=== PATIENT | male | born 1975 | race Hispanic/Latino ===

== ENCOUNTER 2017-05-05 19:37 | Inpatient (IN) | payer MEDICAID ==
[2017-05-05 19:37] VITALS: BMI 23.7
--- NOTE | 2017-05-05 20:47 | C.PDOC ---
History Of Present Illness 41 y/o male presents to ED requesting alcohol and heroin detox. Pt also reports feeling depressed. Denies SI, HI or any physical complaints. Time Seen by Provider: 05/05/17 19:58 Chief Complaint (Nursing): Substance Abuse History Per: Patient History/Exam Limitations: no limitations Current Symptoms Are (Timing): Still Present Modifying Factor(s): Alcohol, Narcotics Associated Symptoms: Depression. denies: Suicidal Thoughts Involuntary Hold By: None Recent travel outside of the [place]: No Past Medical History Reviewed: Historical Data, Nursing Documentation, Vital Signs Vital Signs: Last Vital Signs Temp 98 F 05/06/17 00:02 Pulse 63 05/06/17 00:02 Resp 20 05/06/17 00:02 BP 112/70 05/06/17 00:02 Pulse Ox 100 05/06/17 00:02 - Medical History PMH: Bipolar Disorder, Depression - [facility] Procedures CLOSURE SKIN & SUBCUTANEOUS NEC (08/02/05) DETOXIFICATION SERVICES FOR SUBSTANCE ABUSE TREATMENT (05/30/16) GROUP DRYWALL PROFESSIONAL FOR SUBSTANCE ABUSE TREATMENT, PSYCHOEDUCATION (05/30/16) INDIV PSYCHOTHERAPY FOR SUBSTANCE ABUSE TREATMENT, SUPPORT (11/20/15) INJECT/INFUSE NEC (12/18/12) MEDICATION MANAGEMENT (11/20/15) MEDS MGMT FOR SUBSTANCE ABUSE TREATMENT, OTH REPL MED (02/08/16) VENOUS PUNCTURE NEC (08/31/13) Family History: States: Unknown Family Hx - Social History Hx Tobacco Use: Yes Hx Alcohol Use: Yes (beer/liquor) Hx Substance Use: Yes - Immunization History Hx Tetanus Toxoid Vaccination: Yes Hx Influenza Vaccination: No Hx Pneumococcal Vaccination: No Review Of Systems Except As Marked, All Systems Reviewed And Found Negative. Constitutional: Negative for: Fever Cardiovascular: Negative for: Chest Pain Respiratory: Negative for: Shortness of Breath Gastrointestinal: Negative for: Abdominal Pain Psych: Positive for: Depression. Negative for: Suicidal ideation Physical Exam - Physical Exam Appears: Non-toxic, No Acute Distress Skin: Warm, Dry, No Rash Head: Atraumatic, Normacephalic Neck: Normal, Normal ROM, No Supple Chest: Symmetrical Cardiovascular: Rhythm Regular (tachycardia), No Murmur Respiratory: Normal Breath Sounds, No Rales, No Rhonchi, No Wheezing Gastrointestinal/Abdominal: Normal Exam, Soft, No Tenderness Extremity: Bilateral: Atraumatic Neurological/Psych: Oriented x3, Normal Speech, Other (no tremor) ED Course And Treatment - Laboratory Results Result Diagrams: 05/05/17 21:51 05/05/17 21:51 O2 Sat by Pulse Oximetry: 99 (room air) Pulse Ox Interpretation: Normal Progress Note: Pt to be evaluated by CRISIS. Pt is medically cleared for psychiatric evaluation/ admission. KCL PO and librium ordered. Pt was evaluated by crisis counselor Eloina and is ad mitted to Psych by Dr Jaimes Disposition - Disposition Disposition: HOSPITALIZED Disposition Time: 01:05 Condition: STABLE - Clinical Impression Clinical Impression: Opiate dependence, Depression - PA / REGIONAL CLINICAL DIRECTOR / Resident Statement MD/DO has reviewed & agrees with the documentation as recorded. - Scribe Statement The provider has reviewed the documentation as recorded by the Scribe Tyrone Roach All medical record entries made by the Scribe were at my direction and personally dictated by me. I have reviewed the chart and agree that the record accurately reflects my personal performance of the history, physical exam, medical decision making, and the department course for this patient. I have also personally directed, reviewed, and agree with the discharge instructions and disposition.
[2017-05-05 21:58] LABS: BASO # 0.1 K/uL (0.0-0.2); BASO % 0.6 % (0.0-2.0); EOS # 0.2 K/uL (0.0-0.7); EOS % 1.8 % (0.0-4.0); HEMATOCRIT 42.7 % (35.0-51.0); LYMPH # 2.2 K/uL (1.0-4.3); LYMPH % 21.4 % (20.0-40.0); MEAN CELL VOLUME 84.6 fL (80.0-94.0); MEAN CORPUSCULAR HEMOGLOBIN 27.6 pg (27.0-31.0); MEAN CORPUSCULAR HGB CONC 32.6 g/dL (33.0-37.0); MEAN PLATELET VOLUME 7.7 fL (7.2-11.7); MONO # 0.7 K/uL (0.0-0.8); MONO % 6.8 % (0.0-10.0); RED CELL DISTRIBUTION WIDTH 13.5 % (11.5-14.5); WHITE BLOOD COUNT 10.2 K/uL (4.8-10.8)
[2017-05-05 22:03] LABS: CHLORIDE 102 mmol/L (98-107)
[2017-05-05 22:04] LABS: SODIUM 139 mmol/L (132-148)
[2017-05-05 22:06] LABS: ALB/GLOB RATIO 1.1 (1.0-2.1); ALKALINE PHOSPHATASE 77 U/L (38-126); ALT/SGPT 55 U/L (21-72); AST/SGOT 42 U/L (17-59); BILIRUBIN,TOTAL 0.7 mg/dL (0.2-1.3); BLOOD UREA NITROGEN 14 mg/dL (9-20); CARBON DIOXIDE 27 mmol/L (22-30); GFR AFRICAN-AMERICAN > 60; TOTAL PROTEIN 7.2 g/dL (6.3-8.3)
[2017-05-05 22:07] LABS: ALCOHOL SERUM < 10 mg/dl (0-10); CALCIUM 8.8 mg/dl (8.6-10.4); GLUCOSE,RANDOM 84 mg/dL (75-110)
[2017-05-05 22:09] LABS: POTASSIUM 3.1 mmol/L (3.6-5.2)
[2017-05-05] MEDS ORDERED: Potassium Chloride 20 mEq ER Tab PO STA (22:11)
[2017-05-05] MEDS ORDERED: Potassium Chloride 20 mEq ER Tab PO ONE (22:17)
[2017-05-06] MEDS ORDERED: Aluminum Hydroxide/Magnesium Hydroxide Susp (30 mL) PO STA (00:25)
[2017-05-06] MEDS ORDERED: Aluminum Hydroxide/Magnesium Hydroxide Susp (30 mL) ONE (00:27)
[2017-05-07 06:56] VITALS: BP 109/68; PULSE 59; RESP 16; TEMP 97.7; O2SAT 100
--- NOTE | 2017-05-07 23:11 | PCM.PSYCH ---
Initial Psychiatric Evaluation - Initial Psychiatric Evaluation Legal Status: Capacity Chief Complaint (in patient's own words): I AM DEPRESSED Patient's Reaction to Hospitalization: I AM GLAD THAT I CAME History of Present Illness and Precipitating Events: PT IS A41 YEAR OLD SINGLE, DOMICILED MALE WHO SUFFERS FROM DEPRESSION. HE FEELS HOPELESS, HELPLESS AND WORTHLESS. HE HAS RACING THOUGHTS. HOWEVER HE IS EATING AND SLEEPING WELL. PT HAS TRIED TO KILL HIMSELF AT LEAST ONCE BY OVERDOSING. HE HAS HAD 4-5 PSYCH HOSPITALIZATION STARTING AGE 16. PT STARTED USED ALCOHOL AGE 23 HE DRINKD A PINT OF VODKA A DAY. HE ALSO USES HEROIN SINCE AGE 23. HE USES 5-7 BAGS A DAY. . PT'S FATHERR USES ALCOHOL EXTENSIVELY. MOTHER HAS ANXIETY AND A MOOD DISORDER HE WENT UP TO 12 GRADE. HE HAS HAS SEVERAL DETOXES ON 7D WELL AT [facility] Past Psychiatric History - Past Psychiatric History Prior Professional Help: SEE HPI Pertinent Medical Hx (Current Medical&Sleep Prob, Allergies): Allergies Allergy/AdvReac Type Severity Reaction Status Date / Time No Known Allergies Allergy Verified 05/05/17 19:46 No Known Home Med 04/14/17 Review of Systems - Constitutional Constitutional: Chills, Sweats, Malaise - EENT Eyes: UNREMARKABLE - Cardiovascular Cardiovascular: UNREMARKABLE - Respiratory Respiratory: UNREMARKABLE - Gastrointestinal Gastrointestinal: Cramping - Genitourinary Genitourinary: UNREMARKABLE - Reproductive: Male Reproductive:Male: UNREMARKABLE - Musculoskeletal Musculoskeletal: Arthralgias, Myalgias - Integumentary Integumentary: UNREMARKABLE - Neurological Neurological: UNREMARKABLE - Psychiatric Psychiatric: Anhedonia, Anxiety, Depression, Difficulty Concentrating, Hopelessness, Irritability - Endocrine Endocrine: UNREMARKABLE - Hematologic/Lymphatic Hematologic: UNREMARKABLE Mental Status Examination - Personal Presentation Personal Presentation: Looks stated age - Affect Affect: Constricted - Motor Activity Motor Activity: Calm - Reliability in Providing Information Reliability in Providing Information: Fair - Speech Speech: Organized - Mood Mood: Depressed, Anxious - Formal Thought Process Formal Thought Process: No Impairment - Obsessions/Compulsions Obsessions: None Compulsions: None - Cognitive Functions Orientation: Person, Place, Situation, Time Sensorium: Alert Attention/Concentration: Attentive Abstract Thinking: [place] Estimate of Intelligence: Average Judgement: Intact, as evidence by: Good judgement Memory: Recent intact, as evidence by: Ability to recall events of the day, Remote intact, as evidenced by: Abilit to recall sig. life events - Risk Risk: Suicidal, Withdrawal - Strength & Assets Inventory Strength & Assets Inventory: Cooperative - Limitations Limitations: Living alone DSM 5 DX - DSM 5 DSM 5 Diagnosis: MDD RECURRENT SEVERE WITHOUT PSYCHOSIS VS BIPOLAR DISORDER OPIATE WITHDRAWAL OPIATE USE DISORDER ALCOHOL USE DISORDER ALCOHOL WITHDRAWAL - Recommended/Plan of Treatment Treatment Recommendations and Plan of Treatment: MDD ASSESS FOR APPROPRIATE ANTIDEPRESENT GROUPS INDIVIDUALL SUPPORTIVE PSYCHOTHERAPY OPIATE WITHDRAWAL METHADONE OPIATE USE DISORDER GROUPS MD CBT SUPPORTIVE PSYCHOTHERAPY ALCOHOL WITHDRAWAL LIBRIUM ALCOHOL USE DISORDER CBT MD SUPPORTIVE PSYCHOTHERAPY Projected ELOS: 7 DAYS Prognosis: FAIR Discharge Plan and Discharge Criteria: NO WITHDRAWAL SYMPTOM LESS DEPRESSED - Smoking Cessation Smoking Cessation Initiated: Yes
== END 2017-05-07 11:25 | disposition left against medical advice (07) | DRG 430 ==
LOC: SUPCPDRO 19:37 → C.ER 19:37 → C.5E 05-06 00:42
PROVIDERS: ADMIT Psychiatry & Neurology Psychiatry; ATTEND Psychiatry & Neurology Psychiatry
PROC: HZ2ZZZZ Detoxification Services for Substance Abuse Treatment (ICD-10-PCS; principal; 2017-05-06)
PROC: HZ59ZZZ Individual Psychotherapy for Substance Abuse Treatment, Supportive (ICD-10-PCS; 2017-05-06)
DX: F33.2 Major depressive disorder, recurrent severe without psychotic features (principal); F10.230 Alcohol dependence with withdrawal, uncomplicated; F11.23 Opioid dependence with withdrawal; Y90.0 Blood alcohol level of less than 20 mg/100 ml; F17.210 Nicotine dependence, cigarettes, uncomplicated; M25.50 Pain in unspecified joint

== ENCOUNTER 2017-11-16 21:19 | Inpatient (IN) | payer MEDICAID ==
[2017-11-16 21:20] VITALS: BMI 21.2
[2017-11-16 22:00] LABS: BASO # 0.1 K/uL (0.0-0.2); BASO % 1.1 % (0.0-2.0); EOS # 0.3 K/uL (0.0-0.7); HEMOGLOBIN 12.8 g/dL (12.0-18.0); LYMPH # 2.3 K/uL (1.0-4.3); LYMPH % 30.2 % (20.0-40.0); MEAN CELL VOLUME 84.8 fL (80.0-94.0); MEAN CORPUSCULAR HEMOGLOBIN 27.5 pg (27.0-31.0); MEAN CORPUSCULAR HGB CONC 32.4 g/dL (33.0-37.0); MEAN PLATELET VOLUME 6.9 fL (7.2-11.7); MONO # 0.9 K/uL (0.0-0.8); MONO % 11.3 % (0.0-10.0); NEUT % 53.4 % (50.0-75.0); RBC 4.65 Mil/uL (4.40-5.90); RED CELL DISTRIBUTION WIDTH 13.4 % (11.5-14.5); WHITE BLOOD COUNT 7.5 K/uL (4.8-10.8)
[2017-11-16 22:11] LABS: ALB/GLOB RATIO 1.1 (1.0-2.1); ALBUMIN 3.5 g/dL (3.5-5.0); ALT/SGPT 157 U/L (21-72); AST/SGOT 121 U/L (17-59); BLOOD UREA NITROGEN 15 mg/dL (9-20); GFR AFRICAN-AMERICAN > 60; GFR NON-AFRICAN AMERICAN > 60
[2017-11-16 22:19] LABS: BARBITURATES, UR NEGATIVE (NEGATIVE); BENZODIAZEPINES, UR NEGATIVE (NEGATIVE); PHENCYCLIDINE, UR NEGATIVE (NEGATIVE)
[2017-11-16 22:42] LABS: OPIATES, UR POSITIVE (NEGATIVE)
--- NOTE | 2017-11-16 23:47 | C.PDOC ---
History Of Present Illness 42 year old male presents to the ER stating he is depressed and wants to be evaluated. Denies physical complaints at this time. Patient has a long psych Hx and attempted to commit multiple times in the past and has a Hx of ADD, seizure disorder as a child, and PTSD. He notes he is homeless, smokes heroin, does IV heroin, smokes half a pack of cigarettes a day , and also does cocaine. Patient snorted 4 bags of heroin today. Patient has no surgical Hx or known allergens. He had an ulnar fracture 4 weeks ago, and presents in a left arm short arm splint, has not followed up since initial visit. Forearm x-ray on 10/25/17 proximal ulnar diaphyseal mild comminuted fractures and large butterfly fracture fragment. Forearm x-ray on 10/08/17 proximal shaft of ulnar fracture displaced obliquely. Time Seen by Provider: 11/16/17 21:24 Chief Complaint (Nursing): Psychiatric Evaluation History Per: Patient History/Exam Limitations: no limitations Onset/Duration Of Symptoms: Days Current Symptoms Are (Timing): Still Present Suicide/Self Injury Attempted (Context): None Modifying Factor(s): Narcotics Associated Symptoms: denies: Depression, Suicidal Thoughts, Suicidal Plan Involuntary Hold By: None Recent travel outside of the [place]: No Past Medical History Reviewed: Historical Data, Nursing Documentation, Vital Signs Vital Signs: Last Vital Signs Temp 98 F 11/16/17 23:41 Pulse 65 11/16/17 23:41 Resp 20 11/16/17 23:41 BP 133/66 11/16/17 23:41 Pulse Ox 100 11/17/17 00:05 - Medical History PMH: Bipolar Disorder, Depression - [facility] Procedures CLOSURE SKIN & SUBCUTANEOUS NEC (08/02/05) DETOXIFICATION SERVICES FOR SUBSTANCE ABUSE TREATMENT (05/06/17) GROUP PRODUCE ASSISTANT FOR SUBSTANCE ABUSE TREATMENT, PSYCHOEDUCATION (05/30/16) INDIV PSYCHOTHERAPY FOR SUBSTANCE ABUSE TREATMENT, SUPPORT (05/06/17) INJECT/INFUSE NEC (12/18/12) MEDICATION MANAGEMENT (11/20/15) MEDS MGMT FOR SUBSTANCE ABUSE TREATMENT, OTH REPL MED (02/08/16) VENOUS PUNCTURE NEC (08/31/13) Family History: States: Unknown Family Hx - Social History Hx Tobacco Use: Yes Hx Alcohol Use: Yes (beer/liquor) Hx Substance Use: Yes (last used last night) - Immunization History Hx Tetanus Toxoid Vaccination: Yes Hx Influenza Vaccination: No Hx Pneumococcal Vaccination: No Review Of Systems Constitutional: Negative for: Fever, Chills Cardiovascular: Negative for: Chest Pain, Palpitations Gastrointestinal: Negative for: Nausea, Vomiting, Abdominal Pain Musculoskeletal: Positive for: Arm Pain (Left forearm cast) Psych: Positive for: Depression Physical Exam - Physical Exam Appears: Non-toxic, No Acute Distress Skin: Normal Color, Warm, Dry Head: Atraumatic, Normacephalic Eye(s): bilateral: Normal Inspection Oral Mucosa: Moist Neck: Normal, Supple Chest: Symmetrical, No Tenderness Cardiovascular: Rhythm Regular Respiratory: Normal Breath Sounds, No Rales, No Rhonchi, No Wheezing Gastrointestinal/Abdominal: Soft, No Tenderness Extremity: Other (Left forearm short arm cast) Neurological/Psych: Oriented x3, Normal Speech, Other (No focal deficits) ED Course And Treatment - Laboratory Results Result Diagrams: 11/16/17 21:56 11/16/17 21:56 O2 Sat by Pulse Oximetry: 100 (room air) Pulse Ox Interpretation: Normal Medical Decision Making Medical Decision Making: Plan: * Alcohol serum * CMP * UDS * CBC * Left forearm x-ray Patient has been accepted to psych by Dr. Gilmore. - Scribe Statement The provider has reviewed the documentation as recorded by the Scribe Nacho Avlarez All medical record entries made by the Scribe were at my direction and personally dictated by me. I have reviewed the chart and agree that the record accurately reflects my personal performance of the history, physical exam, medical decision making, and the department course for this patient. I have also personally directed, reviewed, and agree with the discharge instructions and disposition.
--- NOTE | 2017-11-17 00:28 | PCM.BM ---
<SadiaNadine - Last Filed: 11/17/17 00:11> Treatment Plan Problems - Problems identified on initial assessmt Depression Date Initiated: 11/17/17 Time Initiated: 00:45 Assessment reference: NA Status: Active Suicidal Ideation Date Initiated: 11/17/17 Time Initiated: 00:45 Assessment reference: NA Status: Active Opiates Abuse Date Initiated: 11/17/17 Time Initiated: 00:45 Assessment reference: NA Status: Active Treatment assets and liabiliti Patient Assests: ADL independent, good support system, negotiates basic needs Patient Liabilities: substance abuse (Heroin, Cocaine) - Milieu Protocol Maintain good personal hygiene: daily Encourage regular showers, daily Remind patient to perform daily oral care, every shift Assist patient to perform ADL's Maintain personal safety: every shift Educate patient to report safety concerns to staff, every shift Monitor environment for contraband/sharps Medication safety: Monitor for expected outcome, potential side effects: every shift, Assess barriers to learning: every shift, Assess readiness for medication education: every shift <Jean Rizvi - Last Filed: 11/17/17 11:46> - Diagnosis (1) Bipolar disorder Status: Acute Interventions: 11/17/17 11:46 * Assess/adjust medications daily and /or as needed * See patient on an individual basis 7x/week to assess level of manic behaviors and stability * Discuss risks, benefits, side effects and alternatives of medications * (2) Heroin abuse Status: Acute Interventions: 11/17/17 11:46 * Assess 7x/week regarding severity of withdrawal * Educate regarding risks, benefits, side effects and alternatives of medications * Use Motivational Interviewing for abstinence * Use CBT for relapse prevention * Medication management for withdrawal symptoms * Encourage medication assisted treatment * <Nova Mcbride - Last Filed: 11/17/17 11:48> Family Contact Family involvement: Famliy/SO not involved - Goals for Treatment Patient goals for treatment: "I'm not sure yet." Discharge/Continuing Care - Education Needs Education Needs: Patient Medication, Patient Coping Skills, Patient Placement options, Patient Community resources - Discharge Discharge Criteria: Tolerates medication w/o severe side effects, No longer exhibiting s/s of withdrawal, Reduction of target symptoms Discharge to:: [facility] - Treatment Team Participation Discussed with Family/SO: No Was Patient/Family/SO present at Treatment Team Meeting: Yes
[2017-11-17] MEDS ORDERED: Aluminum Hydroxide/Magnesium Hydroxide Susp (30 mL) PO PRN (08:57)
--- NOTE | 2017-11-17 09:05 | RAD ---
PROCEDURE: Radiographs of the Left Forearm HISTORY: trauma COMPARISON: None available. TECHNIQUE: Frontal and lateral views obtained. FINDINGS: BONES: Status post close reduction mid ulnar diaphyseal fracture. Bony detail is obscured by overlying fiberglass cast. Callus is seen about this comminuted nondisplaced mid ulnar fracture. No other fracture identified. JOINT SPACES: Unremarkable. OTHER FINDINGS: None. IMPRESSION: Healing mid ulnar diaphyseal fracture.
--- NOTE | 2017-11-17 10:58 | PCM.PSYCH ---
Initial Psychiatric Evaluation - Initial Psychiatric Evaluation Type of Admission: Voluntary Legal Status: Capacity Chief Complaint (in patient's own words): I am depressed and addicted to alcohol, heroine, and cocaine. History of Present Illness and Precipitating Events: Patient is a 42 year old homeless man brought to the ED by ambulance for depression, and suicidal ideation. Patient states that the [facility] security called the ambulance after the [place] in the [place] bathroom complaining of arm pain from a recent forearm fracture. He states he has been homeless for the past 8 years. He states he has tried living in shelters in the past but feels unsafe there. He is currently on disability for anxiety and depression. He states that he has been battling anxiety and depression since he was in his early 20s. He states that he came from a broken home. Has a single mother, one sister, and never knew his father. He has limited communication with his sister or mother now. He states that because he never knew his father and had multiple friends with via overdose he became depressed and anxious. He states his depression makes it hard for him to get up in the morning and that his lifestyle makes him feel hopeless. These moments of depression spark his anxiety as he worries about his future "and if this is the day he will ." Patient states he wishes to change his life around for the better. 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 Patient states he drinks about 1 pint of hard liquor and 3 24oz cans of beer daily. He reports using cocaine and heroine. Patient states he smokes the cocaine, his last time using cocaine was yesterday , and he uses "as much as I can get my hands on". Patient states he injects/ snorts heroine, uses "as much as I can get my hands on", and his last time using was yesterday. Patient admits to moments of paranoia only while using drugs, and feels like someone is following him. He admits to having suicidal ideation at times with no plan. He had attempted suicide one year ago but "chickened out." Patient is currently experience withdrawal symptoms of cramping , diarrhea, and myalgias. Patient denies auditory or visual hallucinations, seeing shadows, paranoia. He was recently admitted to [address] for drug abuse on 05/06/17, and was admitted to [facility] at [facility] 6 years ago. He currently does not have a psychiatrist, medical doctor, or support group. PMH: Anxiety, Depression Allergies: NKDA Social: Single, homeless, on disability. History of alcoholism for 20 years: Drinks 1 pint and 3 24ox cans of beer daily. History of drug abuse for 20 years. Heroine: Unknown amounts, IV/Snorted. Cocaine: unknown amounts, smoked. Current Medications: Active Medications Generic Name Dose Route Start Last Admin Trade Name Freq PRN Reason Stop Dose Admin Al Hydrox/Mg Hydrox/Simethicone 30 ml 11/17/17 08:57 Maalox 30 Ml PO TID PRN Indigestion / Heartburn Clonidine HCl 0.1 mg 11/17/17 08:57 Catapres PO Q8 PRN COWS Score More or Equal to 5 Hydroxyzine HCl 50 mg 11/17/17 08:57 Atarax PO Q6H PRN Anxiety Ibuprofen 600 mg 11/17/17 08:57 Motrin Tab PO Q6H PRN Pain, moderate (4-7) Loperamide HCl 2 mg 11/17/17 08:57 Imodium PO Q8 PRN Diarrhea Mirtazapine 15 mg 11/17/17 22:00 Remeron PO HS PINEDA Ondansetron HCl 4 mg 11/17/17 08:57 Zofran Tab PO Q8 PRN Nausea/Vomiting Pneumococcal Polyvalent Vaccine 0.5 ml 11/19/17 10:00 Pneumovax 23 Vaccine IM 11/19/17 10:01 .ONCE ONE Past Psychiatric History - Past Psychiatric History Previous Treatment History: Inpatient At [facility] Date: 05/06/17 Pertinent Medical Hx (Current Medical&Sleep Prob, Allergies): Allergies Allergy/AdvReac Type Severity Reaction Status Date / Time No Known Allergies Allergy Verified 11/16/17 21:33 Divalproex [Depakote ER] 500 mg PO BID 11/16/17 Escitalopram [Lexapro] 10 mg PO BID 11/16/17 Review of Systems - Review of Systems All systems: reviewed and no additional remarkable complaints except - Psychiatric Psychiatric: Anxiety, Depression, Hopelessness, Irritability, Suicidal Ideation Mental Status Examination - Personal Presentation Personal Presentation: Looks older than stated age - Affect Affect: Constricted, Depressed - Motor Activity Motor Activity: Calm - Reliability in Providing Information Reliability in Providing Information: Good - Speech Speech: Organized - Mood Mood: Depressed - Formal Thought Process Formal Thought Process: No Impairment - Obsessions/Compulsions Obsessions: No Compulsions: No - Cognitive Functions Orientation: Person, Place, Situation, Time Sensorium: Alert Attention/Concentration: Attentive Abstract Thinking: [place] Estimate of Intelligence: Below average Judgement: Imparied, as evidence by: Poor judgement, Imparied, as evidence by: Lack of insight into illness - Risk Risk: Suicidal, Withdrawal, Diminished functioning - Limitations Limitations: Living alone DSM 5 DX - DSM 5 DSM 5 Diagnosis: Bipolar disorder depressed severe without psychotic features Opioid use disorder severe Opioid withdrawal Alcohol use disorder moderate - Recommended/Plan of Treatment Treatment Recommendations and Plan of Treatment: Bipolar disorder depressed severe without psychotic features CBT Psychoeducation Supportive therapy, group therapy, individual therapy Depakote 250 mg PO BID Remeron 15 gm PO QHS Trazodone 50 mg by mouth daily at bedtime Opioid use disorder severe CBT Psychoeducation Supportive therapy, individual therapy Use [place] for abstinence Opioid withdrawal CBT Psychoeducation Supportive therapy, individual therapy Clonidine when necessary Methadone taper Alcohol use disorder moderate CBT Psychoeducation Supportive therapy, individual therapy Use [place] for abstinence - Smoking Cessation Smoking Cessation Initiated: No
--- NOTE | 2017-11-18 19:45 | PCM.PYCHPN ---
Psychiatric Progress Note - Psychiatric Progress Note Patient seen today, length of contact: 15 minutes Patient Chief Complaint: "I have withdrawal symptoms" Problems Identified/Issues Discussed: Patient was seen. Chart was reviewed important content noted. Nurse input received. Patient reported that he still had opioid withdrawal symptoms after taking 15 mg po methadone. 5 mg of extra methadone was provided. Pt reported that he was no able to sleep last night. Patient is eating well. He still has depressive symptoms. Patient has remained in good clinical and behavioral control. Symptoms are improving, but needs more time to stabilize. Patient is finding medications beneficial and would like to continue with treatment plan. Patient appreciated that treatment team is trying to help. DSM 5 Symptoms Update: Bipolar disorder depressed severe without psychotic features Opioid use disorder severe Opioid withdrawal Alcohol use disorder moderate Medication Change: Yes (methadone) Medical Record Reviewed: Yes Mental Status Examination - Cognitive Function Orientation: Person, Place, Situation, Time Memory: Intact Attention: Poor Concentration: WNL Association: [facility] Fund of Knowledge: [facility] Decription of patient's judgement and insights: limited/limited Addtional comments: superficially cooperative - Mood Mood: Depressed - Affect Affect: Constricted, Depressed - Speech Speech: Appropriate - Formal Thought Process Formal Thought Process: No Impairment Psychotic Thoughts and Behaviors: denied - Suicidal Ideation Suicidal Ideation: No Plan: denied - Homicidal Ideation Homicidal Ideation: No Plan: denied Goal/Treatment Plan - Goal/Treatment Plan Need for Continued Stay: Remain at risks for inpatient hospitalization, Discharge may exacerbated symptoms, Severe functional impairment Progress Toward Problem(s) and Goals/Treatment Plan: Continue treatment and management as per primary team Bipolar disorder depressed severe without psychotic features CBT Psychoeducation Supportive therapy, group therapy, individual therapy Depakote 250 mg PO BID Remeron 15 gm PO QHS Trazodone 50 mg by mouth daily at bedtime Opioid use disorder severe CBT Psychoeducation Supportive therapy, individual therapy Use [place] for abstinence Opioid withdrawal CBT Psychoeducation Supportive therapy, individual therapy Clonidine when necessary Methadone taper Alcohol use disorder moderate CBT Psychoeducation Supportive therapy, individual therapy Use CT for abstinence Estimated Date of D/C: 11/23/17 - Smoking Cessation Smoking Cessation Initiated: No
[2017-11-19 05:41] VITALS: O2SAT 100
[2017-11-19] MEDS ORDERED: Influenza Vaccine 60 mcg/0.5 mL SYR (4YR UP) IM ONE (10:00)
[2017-11-19] MEDS ORDERED: Pneumococcal 23-Valent Vaccine IM ONE (10:00)
--- NOTE | 2017-11-19 17:11 | PCM.PYCHPN ---
Psychiatric Progress Note - Psychiatric Progress Note Patient seen today, length of contact: 15 minutes Patient Chief Complaint: "I have withdrawal symptoms" Problems Identified/Issues Discussed: Patient was seen. Chart was reviewed important content noted. Nurse input received. Patient is preoccupied with med seeking behavior. Patient reportedreported that he still had opioid withdrawal symptoms. Pt reported that he was no able to sleep last night. Patient is eating well. He still has depressive symptoms. Patient has remained in good clinical and behavioral control. Symptoms are improving, but needs more time to stabilize. Patient is finding medications beneficial and would like to continue with treatment plan. Patient appreciated that treatment team is trying to help. Medication Change: Yes (methadone) Medical Record Reviewed: Yes Mental Status Examination - Cognitive Function Orientation: Person, Place, Situation, Time Memory: Intact Attention: Poor Concentration: WNL Association: WNL Fund of Knowledge: [facility] Decription of patient's judgement and insights: limited/limited - Mood Mood: Depressed - Affect Affect: Constricted, Depressed - Speech Speech: Appropriate - Formal Thought Process Formal Thought Process: No Impairment Psychotic Thoughts and Behaviors: denied - Suicidal Ideation Suicidal Ideation: No Plan: denied - Homicidal Ideation Homicidal Ideation: No Plan: denied Goal/Treatment Plan - Goal/Treatment Plan Need for Continued Stay: Remain at risks for inpatient hospitalization, Discharge may exacerbated symptoms, Severe functional impairment Progress Toward Problem(s) and Goals/Treatment Plan: Continue treatment and management as per primary team Bipolar disorder depressed severe without psychotic features CBT Psychoeducation Supportive therapy, group therapy, individual therapy Depakote 250 mg PO BID Remeron 15 gm PO QHS Trazodone 50 mg by mouth daily at bedtime Opioid use disorder severe CBT Psychoeducation Supportive therapy, individual therapy Use PA for abstinence Opioid withdrawal CBT Psychoeducation Supportive therapy, individual therapy Clonidine when necessary Methadone taper Alcohol use disorder moderate CBT Psychoeducation Supportive therapy, individual therapy Use PA for abstinence Estimated Date of D/C: 11/23/17 - Smoking Cessation Smoking Cessation Initiated: Yes
--- NOTE | 2017-11-20 11:15 | PCM.PYCHPN ---
Psychiatric Progress Note - Psychiatric Progress Note Patient seen today, length of contact: 15 minutes Patient Chief Complaint: I am having pain all over my body and having a lot of gas. Problems Identified/Issues Discussed: Patient was seen. Chart was reviewed important content noted. Nurse input received. Patient is preoccupied with med seeking behavior. Patient reported that he still had opioid withdrawal symptoms. He also reports having a lot of gas and dry skin. Pt reported that he was no able to sleep last night. Patient is eating well. He still has depressive symptoms. Patient has remained in good clinical and behavioral control. Symptoms are improving, but needs more time to stabilize. Patient is finding medications beneficial and would like to continue with treatment plan. Patient appreciated that treatment team is trying to help. Medication Change: Yes (methadone) Medical Record Reviewed: Yes Mental Status Examination - Cognitive Function Orientation: Person, Place, Situation, Time Memory: Intact Attention: Poor Concentration: WNL Association: WNL Fund of Knowledge: WNL - Mood Mood: Depressed - Affect Affect: Constricted, Depressed - Speech Speech: Appropriate - Formal Thought Process Formal Thought Process: No Impairment - Suicidal Ideation Suicidal Ideation: No - Homicidal Ideation Homicidal Ideation: No Goal/Treatment Plan - Goal/Treatment Plan Need for Continued Stay: Remain at risks for inpatient hospitalization, Discharge may exacerbated symptoms, Severe functional impairment Progress Toward Problem(s) and Goals/Treatment Plan: Bipolar disorder depressed severe without psychotic features CBT Psychoeducation Supportive therapy, group therapy, individual therapy Depakote 250 mg PO BID Remeron 15 gm PO QHS Trazodone 50 mg by mouth daily at bedtime Opioid use disorder severe CBT Psychoeducation Supportive therapy, individual therapy Use MD for abstinence Opioid withdrawal CBT Psychoeducation Supportive therapy, individual therapy Clonidine when necessary Methadone taper Alcohol use disorder moderate CBT Psychoeducation Supportive therapy, individual therapy Use MD for abstinence Estimated Date of D/C: 11/23/17
--- NOTE | 2017-11-21 10:39 | PCM.PYCHPN ---
Psychiatric Progress Note - Psychiatric Progress Note Patient seen today, length of contact: 15 minutes Patient Chief Complaint: I am having pain all over my body and having a lot of gas. Problems Identified/Issues Discussed: Patient was seen. Chart was reviewed important content noted. Nurse input received. Patient is preoccupied with med seeking behavior. Patient reported that he still had opioid withdrawal symptoms. He also reports having a lot of gas and dry skin. Pt reported that he was no able to sleep last night. Patient is eating well. He still has depressive symptoms. Patient has remained in good clinical and behavioral control. Symptoms are improving, but needs more time to stabilize. Patient is finding medications beneficial and would like to continue with treatment plan. Patient appreciated that treatment team is trying to help. Medication Change: Yes (methadone) Medical Record Reviewed: Yes Mental Status Examination - Cognitive Function Orientation: Person, Place, Situation, Time Memory: Intact Attention: Poor Concentration: WNL Association: WNL Fund of Knowledge: WNL - Mood Mood: Depressed - Affect Affect: Constricted, Depressed - Speech Speech: Appropriate - Formal Thought Process Formal Thought Process: No Impairment - Suicidal Ideation Suicidal Ideation: No - Homicidal Ideation Homicidal Ideation: No Goal/Treatment Plan - Goal/Treatment Plan Need for Continued Stay: Remain at risks for inpatient hospitalization, Discharge may exacerbated symptoms, Severe functional impairment Progress Toward Problem(s) and Goals/Treatment Plan: Bipolar disorder depressed severe without psychotic features CBT Psychoeducation Supportive therapy, group therapy, individual therapy Depakote 250 mg PO BID Remeron 15 gm PO QHS Trazodone 50 mg by mouth daily at bedtime Opioid use disorder severe CBT Psychoeducation Supportive therapy, individual therapy Use LA for abstinence Opioid withdrawal CBT Psychoeducation Supportive therapy, individual therapy Clonidine when necessary Methadone taper Alcohol use disorder moderate CBT Psychoeducation Supportive therapy, individual therapy Use LA for abstinence Estimated Date of D/C: 11/23/17
[2017-11-22 06:14] VITALS: BP 122/78; PULSE 90; RESP 18; TEMP 97.7
--- NOTE | 2017-11-22 09:52 | PCM.PYCHDC ---
Mental Status Examination - Mental Status Examination Orientation: Person, Place, Situation, Time Memory: Intact Mood: Neutral Affect: Constricted Speech: Soft Attention: WNL Concentration: WNL Association: WNL Fund of Knowledge: WNL Formal Thought Process: No Impairment Description of patient's judgement and insight: good, fair Psychotic Thoughts and Behaviors: denies any AVH Suicidal Ideation: No Current Homicidal Ideation?: No Discharge Summary - Discharge Note Reason for Hospitalization: Patient is a 42 year old homeless man brought to the ED by ambulance for depression, and suicidal ideation. Patient states that the [employer] security called the ambulance after the [place] him in the mall bathroom complaining of arm pain from a recent forearm fracture. He states he has been homeless for the past 8 years. He states he has tried living in shelters in the past but feels unsafe there. He is currently on disability for anxiety and depression. He states that he has been battling anxiety and depression since he was in his early 20s. He states that he came from a broken home. Has a single mother, one sister, and never knew his father. He has limited communication with his sister or mother now. He states that because he never knew his father and had multiple friends with via overdose he became depressed and anxious. He states his depression makes it hard for him to get up in the morning and that his lifestyle makes him feel hopeless. These moments of depression spark his anxiety as he worries about his future "and if this is the day he will ." Patient states he wishes to change his life around for the better. 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 Patient states he drinks about 1 pint of hard liquor and 3 24oz cans of beer daily. He reports using cocaine and heroine. Patient states he smokes the cocaine, his last time using cocaine was yesterday , and he uses "as much as I can get my hands on". Patient states he injects/ snorts heroine, uses "as much as I can get my hands on", and his last time using was yesterday. Patient admits to moments of paranoia only while using drugs, and feels like someone is following him. He admits to having suicidal ideation at times with no plan. He had attempted suicide one year ago but "chickened out." Patient is currently experience withdrawal symptoms of cramping , diarrhea, and myalgias. Patient denies auditory or visual hallucinations, seeing shadows, paranoia. He was recently admitted to [address] for drug abuse on 05/06/17, and was admitted to [facility] 6 years ago. He currently does not have a psychiatrist, medical doctor, or support group. Consultations:: List each consultation separately and include: 1. Reason for request. 2. Findings. 3. Follow-up Summary of Hospital Course include:: 1. Description of specific treatment plan utilized for patients during their course of treatmen. 2. Summarize the time- course for resolution of acute symptoms and/or regressed behaviors. 3. Describe issues identified and worked on during hospitalization. 4. Describe medication utilized. 5. Describe medical problems identified and treated. 6. Reassessment of suicide risk Summary of Hospital Course: During the course of his stay, patient (pt) started progressively improving and he no longer remained irritable, depressed, and suicidal. His mood and anxiety symptoms were improved and he started attending groups and meetings and started socializing. Patient denied any feelings of hopelessness, helplessness, and worthlessness, denied any problem with the sleep or appetite, denied suicidal ideation or homicidal ideation. Pt denied any auditory or visual hallucinations. Some changes were made in his current medications and patient was discharged on following medications. He tolerated these medications very well and denied any side effects. Pt was not interested in referrals for treatment, however SW provided pt with information for [facility] in [place] should he be interested in treatment in the future. - Diagnosis (1) Bipolar disorder Status: Acute (2) Heroin abuse Status: Acute - Final Diagnosis (DSM 5) Condition upon Discharge: GOOD DSM 5: Bipolar disorder depressed severe without psychotic features Opioid use disorder severe Opioid withdrawal Alcohol use disorder moderate Disposition: HOME/ ROUTINE Follow-up Treatment Plan: Education: Pt was educated and counseled about the risks and benefits of taking and not taking medications. Pt was educated and counseled about the risks of drinking and abusing drugs. Pt was educated and counseled to go to the ER or call 911 if pt develop suicidal ideation or homicidal ideation, worsening of symptoms or severe side effects of the meds. Prescriptions/Medication Reconciliation: Divalproex [Depakote ER] 250 mg PO BID [address] Mirtazapine [Remeron] 15 mg PO HS #14 tab - Smoking Cessation Smoking Cessation Medication prescribed: No - Antipsychotic Medications Pt discharged on 2 or more routine antipsychotic medications: No
== END 2017-11-22 12:06 | disposition home or self-care (01) | DRG 430 ==
LOC: C.ER 21:19 → C.5E 23:14
PROVIDERS: ADMIT Psychiatry & Neurology Psychiatry; ATTEND Psychiatry & Neurology Psychiatry
PROC: HZ2ZZZZ Detoxification Services for Substance Abuse Treatment (ICD-10-PCS; principal; 2017-11-16)
DX: F31.4 Bipolar disorder, current episode depressed, severe, without psychotic features (principal); G40.909 Epilepsy, unspecified, not intractable, without status epilepticus; F11.23 Opioid dependence with withdrawal; F14.10 Cocaine abuse, uncomplicated; F17.210 Nicotine dependence, cigarettes, uncomplicated; F43.10 Post-traumatic stress disorder, unspecified; Z59.0 Homelessness; Z68.22 Body mass index [BMI] 22.0-22.9, adult